=== PATIENT | male | born 1995 | race African-American/Black ===

== ENCOUNTER 2022-02-16 10:18 | Emergency (ER) | payer OTHER, SELFPAY ==
[2022-02-16 10:36] VITALS: BP 165/118; PULSE 92; RESP 20; TEMP 36.8; O2SAT 98; BMI 27.0
--- NOTE | 2022-02-16 13:53 | DI.CT.S_ITS ---
PROCEDURE: CT HEAD/BRAIN WO CON INDICATIONS: head injury TECHNIQUE: Noncontrast 4.5 mm thick angled axial sections acquired from the foramen magnum to the vertex, with coronal and sagittal reformats. For radiation dose reduction, the following was used: automated exposure control, adjustment of mA and/or kV according to patient size. COMPARISON: None. FINDINGS: Image quality: Excellent. CSF spaces: Basal cisterns are patent. No extra-axial fluid collections. Ventricles are normal in size and shape. Brain: No midline shift. No intracranial masses or hemorrhage. Shin-white matter interface is normal. Skull and face: Calvarium and visualized facial bones are intact, without suspicious lesions. Sinuses: Visualized sinuses and mastoids are clear. IMPRESSION: No acute intracranial hemorrhage is seen. No acute intracranial process is seen. Dictated by: Ronan Daniel M.D. on 02/16/2022 at 13:11 Approved by: Ronan Daniel M.D. on 02/16/2022 at 13:11
--- NOTE | 2022-02-16 13:54 | ED_ITS ---
HPI - Nausea/Vomiting/Diarrhea <Kirby Coy PA-C - Last Filed: 02/16/22 15:59> General Chief complaint: Nausea/Vomiting/Diarrhea Stated complaint: Hit head, poss. concussion, not eating, dizzy, n/v Time Seen by Provider: 02/16/22 13:40 Source: patient Mode of arrival: Ambulatory History of Present Illness HPI Narrative: Patient is a 27-year-old male who presents to the ED complaining of headache dizziness nausea vomiting that started a few days ago. He was sleep walking in the middle the night discovered by his spouse when she attempted to wake him he fell striking his head against the wall. EMS was called because spouse was unable to awaken him. He was evaluated and refused transport at that time. Catracho maier reports that later that day he was continuing to feel some weakness and headache he was not eating or drinking much. He had some signs of difficulty in concentration but remained alert and oriented. He has had increased nausea today no reported vomiting no reported by fever no reported diarrhea. 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 Spouse does admit that he does snore and have episodes of sleep apnea and he has a history of PTSD of which she is being treated for with antianxiety medication and antidepressants. He has felt some tiredness from starting these medications. Related Data Allergies Allergy/AdvReac Type Severity Reaction Status Date / Time No Known Drug Allergies Allergy Verified 02/16/22 14:51 Review of Systems <Kirby Coy PA-C - Last Filed: 02/16/22 15:59> Review of Systems ROS Unobtainable: All systems reviewed & are unremarkable except as noted in HPI and below Constitutional Constitutional: Denies chills, Denies fatigue, Denies fever(s), Denies frequent falls, Denies lethargy and Reports weakness Eyes Eyes: Denies change in vision, Denies eye discharge, Denies irritation and Denies loss of vision ENT Ears, Nose, Mouth, and Throat: Denies change in voice, Reports dizziness, Denies neck pain, Denies sore throat and Denies throat swelling Cardiovascular Cardiovascular: Denies chest pain, Denies irregular heart rhythm, Denies lightheadedness, Denies palpitations, Denies dyspnea, Denies dyspnea on exertion and Denies orthopnea Respiratory Respiratory: Denies cough, Denies dyspnea, Denies dyspnea on exertion and Denies wheezing Gastrointestinal Gastrointestinal: Denies abdominal pain, Denies change in bowel habits, Denies diarrhea, Denies nausea and Denies vomiting Genitourinary Genitourinary: Denies hematuria, Denies flank pain, Denies urinary incontinence and Denies urinary urgency Musculoskeletal Musculoskeletal: Denies back pain, Denies muscle weakness, Denies neck pain, Denies numbness and Denies tingling Integumentary/Breasts Skin/Breast: Denies pruritus, Denies erythema, Denies rash and Denies wounds Neurologic Neurologic: Denies behavioral changes, Denies confusion, Reports dizziness, Denies frequent falls, Denies loss of vision, Denies numbness, Denies tingling and Reports weakness Psychiatric Psychiatric: Denies anxiety, Denies behavioral changes, Denies confusion, Denies depression, Denies homicidal ideation and Denies suicidal ideation Endocrine Endocrine: Denies fatigue, Denies flushing and Denies palpitations Hematologic/Lymphatic Hematologic/Lymphatic: Denies easy bruising Allergic/Immunologic Allergic/Immunologic: Denies urticaria, Denies throat swelling and Denies wheez ing Patient History <Kirby Coy PA-C - Last Filed: 02/16/22 15:59> Social History Smoking Status: Current every day smoker Smoking Status: Current every day smoker tobacco type: vaping alcohol intake frequency: 0-2 drinks per day Substance Use Type: does not use Exam <Kirby Coy PA-C - Last Filed: 02/16/22 15:59> Initial Vital Signs Initial Vital Signs: Vital Signs Temperature 98.3 F 02/16/22 10:36 Pulse Rate 92 H 02/16/22 10:36 Respiratory Rate 20 02/16/22 10:36 Blood Pressure 165/118 H 02/16/22 10:36 Pulse Oximetry 98 02/16/22 10:36 Const General: cooperative, healthy appearing and comfortable Nutritional Appearance: average body habitus Orientation: Orientation [facility] Head: normal to inspection, normocephalic and atraumatic Ears: hearing grossly normal bilaterally and external ears normal Nose: external nose normal and nares normal Face and sinus: normal facial exam Mouth: oral mucosae normal and lip normal Eyes Pupils: PERRL Resp Effort & Inspection: normal respiratory effort and able to speak in complete sentences Auscultation: clear to auscultation bilaterally GI Inspection: normal to inspection Palpation: soft Percussion: normal to percussion Auscultation: normal bowel sounds Neuro General: patient alert, patient awake, patient oriented x3, gait normal, moves all extremities and CN's II-XI intact bilaterally <DO Simba Martinez Last Filed: 02/16/22 16:03> Initial Vital Signs Initial Vital Signs: Vital Signs Temperature 98.3 F 02/16/22 10:36 Pulse Rate 92 H 02/16/22 10:36 Respiratory Rate 20 02/16/22 10:36 Blood Pressure 165/118 H 02/16/22 10:36 Pulse Oximetry 98 02/16/22 10:36 Course <Kirby Coy PA-C - Last Filed: 02/16/22 15:59> Orders Ordered: ED Orders 02/16/22 13:53 CT head/brain wo con Stat 02/16/22 14:09 CBC Auto Diff [Complete Blood Count AUTO DIFF] Stat CMP [Comprehensive Metabolic Panel] Stat TSH [Thyroid Stimulating Hormone] Stat Discontinued Medications Acetaminophen (Acetaminophen 325 Mg Tablet) 975 mg PO NOW ONE Stop: 02/16/22 14:50 Last Admin: 02/16/22 15:03 Dose: 975 mg Documented by: LUPE Ondansetron HCl (Ondansetron 4 Mg Odt) 4 mg SL NOW ONE Stop: 02/16/22 14:51 Last Admin: 02/16/22 15:04 Dose: 4 mg Documented by: LUPE Vital Signs Vital signs: Vital Signs - 8 hr 02/16/22 10:36 02/16/22 13:59 02/16/22 15:52 Temperature 98.3 F Pulse Rate 92 H 101 H 97 H Respiratory Rate 20 18 Blood Pressure 165/118 H 163/117 H 141/97 H Pulse Oximetry 98 98 98 <DO Simba Martinez Last Filed: 02/16/22 16:03> Orders Ordered: ED Orders 02/16/22 13:53 CT head/brain wo con Stat 02/16/22 14:09 CBC Auto Diff [Complete Blood Count AUTO DIFF] Stat CMP [Comprehensive Metabolic Panel] Stat TSH [Thyroid Stimulating Hormone] Stat Discontinued Medications Acetaminophen (Acetaminophen 325 Mg Tablet) 975 mg PO NOW ONE Stop: 02/16/22 14:50 Last Admin: 02/16/22 15:03 Dose: 975 mg Documented by: LUPE Ondansetron HCl (Ondansetron 4 Mg Odt) 4 mg SL NOW ONE Stop: 02/16/22 14:51 Last Admin: 02/16/22 15:04 Dose: 4 mg Documented by: LUPE Vital Signs Vital signs: Vital Signs - 8 hr 02/16/22 10:36 02/16/22 13:59 02/16/22 15:52 Temperature 98.3 F Pulse Rate 92 H 101 H 97 H Respiratory Rate 20 18 Blood Pressure 165/118 H 163/117 H 141/97 H Pulse Oximetry 98 98 98 MDM - Nausea/Vomiting/Diarrhea <Kirby Coy PA-C - Last Filed: 02/16/22 15:59> Differential Diagnosis Differential diagnosis: Likely other Lab Data Result diagrams: 02/16/22 14:09 02/16/22 14:09 Labs: Lab Results 02/16/22 02/16/22 02/16/22 Range/Units 14:09 14:09 14:09 WBC 8.4 (4.5-11.0) X10^3/uL RBC 4.54 (4.5-5.9) X10^6/uL Hgb 16.1 (13.5-17.5) g/dL Hct 45.5 (41-53) % MCV 100.3 H (80-100) fL MCH 35.4 H (26-34) PG MCHC 35.3 (30-36) % RDW 13.3 (11.6-14.8) % Plt Count 227 (150-400) X10^3/uL Neut % (Auto) 57.0 (50-75) % Lymph % (Auto) 32.2 (25-40) % Redwood % (Auto) 7.7 (3-14) % Eos % (Auto) 2.1 (2-4) % Baso % (Auto) 1.0 (0-2) % Neut # (Auto) 4800 (3681-6440) /uL Lymph # (Auto) 2700 (3525-3897) /uL Redwood # (Auto) 600 (0-900) /uL Eos # (Auto) 200 (0-450) /uL Baso # (Auto) 100 (0-100) /uL Sodium 137 (137-145) mmol/L Potassium 3.4 (3.4-5.1) mmol/L Chloride 93 L (98-107) mmol/L Carbon Dioxide 31 (22-32) mmol/L BUN 16 (9-20) mg/dL Creatinine 1.11 (0.66-1.25) mg/dL Estimated GFR > 60.0 (>60) mL/min BUN/Creatinine Ratio 14.4 (6-22) Glucose 135 H (70-100) mg/dL Calcium 9.3 (8.4-10.2) mg/dL Total Bilirubin 1.8 H (0.2-1.3) mg/dL AST 103 H (17-59) IU/L ALT 58 H (<50) IU/L Alkaline Phosphatase 105 (38-126) U/L Total Protein 9.3 H (6.3-8.2) g/dL Albumin 5.3 H (3.5-5.0) g/dL Globulin 4.0 (1.7-4.1) g/dL Albumin/Globulin Ratio 1.3 (1.0-2.8) TSH 4.79 H (0.47-4.68) uIU/mL Imaging Data CT scan - head: Radiologist's Impression: PROCEDURE:? CT HEAD/BRAIN WO CON ? INDICATIONS:? head injury ? TECHNIQUE:? Noncontrast 4.5 mm thick angled axial sections acquired from the foramen magnum to the vertex, with coronal and sagittal reformats.? For radiation dose reduction, the following was used:? automated exposure control, adjustment of mA and/or kV according to patient size.? ? COMPARISON:? None. ? FINDINGS:? Image quality:? Excellent.? ? CSF spaces:? Basal cisterns are patent.? No extra-axial fluid collections.? Ventricles are normal in size and shape.? ? Brain:? No midline shift.? No intracranial masses or hemorrhage.? Shin-white matter interface is normal.? ? Skull and face:? Calvarium and visualized facial bones are intact, without suspicious lesions.? ? Sinuses:? Visualized sinuses and mastoids are clear.? ? IMPRESSION:? No acute intracranial hemorrhage is seen.? ? No acute intracranial process is seen.? ? ? Dictated by: Ronan Daniel M.D. on 02/16/2022 at 13:11 ? ? Approved by: Ronan Daniel M.D. on 02/16/2022 at 13:11?? [facility] Narrative Medical decision making narrative: Patient was evaluated today for headache nausea vomiting as result of a fall from [address] scan does not show any evidence of any abnormalities blood work looks unremarkable. He should follow up with his PCP for further concerns patient was discharged home. <Francisco Domínguez, DO - Last Filed: 02/16/22 16:03> Lab Data Labs: Lab Results 02/16/22 02/16/22 02/16/22 Range/Units 14:09 14:09 14:09 WBC 8.4 (4.5-11.0) X10^3/uL RBC 4.54 (4.5-5.9) X10^6/uL Hgb 16.1 (13.5-17.5) g/dL Hct 45.5 (41-53) % MCV 100.3 H (80-100) fL MCH 35.4 H (26-34) PG MCHC 35.3 (30-36) % RDW 13.3 (11.6-14.8) % Plt Count 227 (150-400) X10^3/uL Neut % (Auto) 57.0 (50-75) % Lymph % (Auto) 32.2 (25-40) % Redwood % (Auto) 7.7 (3-14) % Eos % (Auto) 2.1 (2-4) % Baso % (Auto) 1.0 (0-2) % Neut # (Auto) 4800 (3640-4456) /uL Lymph # (Auto) 2700 (6834-6292) /uL Redwood # (Auto) 600 (0-900) /uL Eos # (Auto) 200 (0-450) /uL Baso # (Auto) 100 (0-100) /uL Sodium 137 (137-145) mmol/L Potassium 3.4 (3.4-5.1) mmol/L Chloride 93 L (98-107) mmol/L Carbon Dioxide 31 (22-32) mmol/L BUN 16 (9-20) mg/dL Creatinine 1.11 (0.66-1.25) mg/dL Estimated GFR > 60.0 (>60) mL/min BUN/Creatinine Ratio 14.4 (6-22) Glucose 135 H (70-100) mg/dL Calcium 9.3 (8.4-10.2) mg/dL Total Bilirubin 1.8 H (0.2-1.3) mg/dL AST 103 H (17-59) IU/L ALT 58 H (<50) IU/L Alkaline Phosphatase 105 (38-126) U/L Total Protein 9.3 H (6.3-8.2) g/dL Albumin 5.3 H (3.5-5.0) g/dL Globulin 4.0 (1.7-4.1) g/dL Albumin/Globulin Ratio 1.3 (1.0-2.8) TSH 4.79 H (0.47-4.68) uIU/mL Discharge Plan Departure Patient Disposition: Home Clinical Impression: Head injury Instructions: DI for Closed Head Injury Activity Restrictions/Additional Instructions: You were evaluated today for your head injury of which her CT scan was normal. Your blood work was unremarkable although we did discuss that your thyroid level was slightly low I do not think it is clinically relevant and at this time I probably would not recommend any thyroid medication. However if you start to develop symptoms of low thyroid you should follow-up with her PCP to have it re-evaluated. Thank you for the opportunity to care for you today <Francisco Domínguez, DO - Last Filed: 02/16/22 16:03> [facility]: Dr Domínguez Co-Sign Statement: I was available for consultation during this patient's emergency department visit. This chart is signed by myself for administrative purposes only. I did not have direct contact with this patient during this visit. They were seen independently by the APC.
[2022-02-16 13:59] VITALS: BP 163/117; PULSE 101; O2SAT 98
[2022-02-16 14:17] LABS: Add Manual Diff / Slide Review NO; Basophils Absolute Auto 100 /uL (0-100); Eosinophils Absolute Auto 200 /uL (0-450); Eosinophils Percent Auto 2.1 % (2-4); Hematocrit 45.5 % (41-53); Hemoglobin 16.1 g/dL (13.5-17.5); Lymphocytes Absolute Auto 2700 /uL (1100-4500); Lymphocytes Percent Auto 32.2 % (25-40); Mean Corpuscular HGB Conc 35.3 % (30-36); Mean Corpuscular Hemoglobin 35.4 PG (26-34); Mean Corpuscular Volume 100.3 fL (80-100); Monocytes Absolute Auto 600 /uL (0-900); Monocytes Percent Auto 7.7 % (3-14); Neutrophils Absolute Auto 4800 /uL (1500-7000); Platelet Count 227 X10^3/uL (150-400); Red Blood Cell Count 4.54 X10^6/uL (4.5-5.9); Red Cell Distribution Width 13.3 % (11.6-14.8); White Blood Cell Count 8.4 X10^3/uL (4.5-11.0)
[2022-02-16 14:28] LABS: Alanine Aminotransferase 58 IU/L (<50); Albumin 5.3 g/dL (3.5-5.0); Albumin Globulin Ratio 1.3 (1.0-2.8); Alkaline Phosphatase 105 U/L (38-126); Aspartate Aminotransferase 103 IU/L (17-59); BUN Creatinine Ratio 14.4 (6-22); Bilirubin Total 1.8 mg/dL (0.2-1.3); Blood Urea Nitrogen 16 mg/dL (9-20); Calcium 9.3 mg/dL (8.4-10.2); Carbon Dioxide 31 mmol/L (22-32); Chloride 93 mmol/L (98-107); Estimated Glomerular Filt Rate > 60.0 mL/min (>60); Glucose 135 mg/dL (70-100); HEMOLYSIS < 15 (0-50); Potassium 3.4 mmol/L (3.4-5.1); Sodium 137 mmol/L (137-145); Total Protein 9.3 g/dL (6.3-8.2)
[2022-02-16] MEDS: ACETAMINOPHEN 325 MG TABLET 975 MG PO (15:03)
[2022-02-16] MEDS: ONDANSETRON 4 MG ODT SL (15:04)
[2022-02-16 15:05] LABS: Thyroid Stimulating Hormone 4.79 uIU/mL (0.47-4.68)
[2022-02-16 15:52] VITALS: BP 141/97; PULSE 97; RESP 18; O2SAT 98
== END 2022-02-16 16:11 | disposition home or self-care (01) ==
PROVIDERS: Emergency Provider Physician Assistant
DX: S09.90XA Unspecified injury of head, initial encounter (principal); F17.290 Nicotine dependence, other tobacco product, uncomplicated; W19.XXXA Unspecified fall, initial encounter; Y93.89 Activity, other specified
CPT/HCPCS: 36415; 70450; 80053; 84443; 85025; 99283; 99284